=== PATIENT | female | born 1945 | race Caucasian/White ===

== ENCOUNTER 2023-03-14 09:27 | Emergency (ER) | payer OTHER ==
[~2023-03-14] VITALS: Ht 162.6 cm; Wt 63.0 kg
== END 2023-03-14 11:15 | disposition home or self-care (01) ==
LOC: ER 09:27
DX: S80.811A Abrasion, right lower leg, initial encounter (principal); W01.0XXA Fall on same level from slipping, tripping and stumbling without subsequent striking against object, initial encounter; Y93.89 Activity, other specified; Y92.480 Sidewalk as the place of occurrence of the external cause; S69.81XA Other specified injuries of right wrist, hand and finger(s), initial encounter; E11.9 Type 2 diabetes mellitus without complications; I10 Essential (primary) hypertension; F32.89 Other specified depressive episodes; M19.90 Unspecified osteoarthritis, unspecified site